=== PATIENT | male | born 1990 | race Caucasian/White ===

== ENCOUNTER 2018-07-07 17:11 | Emergency (ER) | payer OTHER ==
--- NOTE | 2018-07-07 17:34 | PDOC ---
Rapid Medical Evaluation Chief Complaint: Injury Time Seen by Provider: 07/07/18 17:30 Medical Evaluation: Allergies Allergy/AdvReac Type Severity Reaction Status Date / Time No Known Allergies Allergy Verified 07/07/18 17:30 07/07/18 17:31 This patient had a brief in-person evaluation. The patient presents with a chief complaint of laceration to right lower leg. States accidentally cut by glass that was sticking out of garbage bag. Tetanus not up to date Pertinent physical exam NAD even and unlabored breathing right lower leg with open wound The following was ordered xray, boostrix This patient will proceed to the ED Discharge Disposition - Diagnosis Laceration - Referrals - Patient Instructions - Post Discharge Activity
[2018-07-07] MEDS ORDERED: DIPHTH,PERTUSS(ACELL),TET 0.5 ML DISP.SYRIN IM ONE (17:35)
[2018-07-07 17:37] VITALS: BP 111/60; PULSE 78; TEMP 97.9; BMI 25.4
--- NOTE | 2018-07-07 19:58 | PDOC ---
History of Present Illness - History of Present Illness Initial Comments: This patient is a 27 year old male with PMHx of IDDM, who presents for right leg laceration. Patient states that he was taking out the garbage at work last night when he cut right leg on a shard of glass. Patient states that he began bleeding and passed out at the site of blood. He states that he fell down on the concrete and hit his head and his right shoulder. He states that he had a headache yesterday but none today. He also is complaining of right shoulder pain. Patient is left hand dominant. Tetanus not up to date 07/07/18 20:15 <Violet Valdivia - Last Filed: 07/07/18 20:18> - General History Source: Patient Exam Limitations: No Limitations <Kelley Scott - Last Filed: 07/10/18 17:04> - General Chief Complaint: Injury Stated Complaint: ON JOB INJURY RIGHT SIDE Time Seen by Provider: 07/07/18 17:30 Past History <Violet Valdivia - Last Filed: 07/07/18 20:18> - Travel Traveled outside of the country in the last 30 days: No Close contact w/someone who was outside of country & ill: No - Past Medical History COPD: No Diabetes: Yes (IDDM) - Immunization History Immunization Up to Date: Yes - Suicide/Smoking/Psychosocial Hx Smoking History: Current every day smoker Number of Cigarettes Smoked Daily: 8 Information on smoking cessation initiated: No Hx Alcohol Use: No Drug/Substance Use Hx: Yes (MARIJUANA) <Kelley Scott - Last Filed: 07/10/18 17:04> - Past Medical History Allergies/Adverse Reactions: Allergies Allergy/AdvReac Type Severity Reaction Status Date / Time No Known Allergies Allergy Verified 07/07/18 17:30 Home Medications: Ambulatory Orders Cephalexin Monohydrate [Keflex -] 500 mg PO BID #14 capsule 07/07/18 traMADol HCL [Ultram -] 50 mg PO Q8H #12 tablet MDD 3 07/07/18 Review of Systems - Review of Systems Comments:: GENERAL/CONSTITUTIONAL: No fever or chills. No weakness. HEAD, EYES, EARS, NOSE AND THROAT: No change in vision. No ear pain or discharge. No sore throat. CARDIOVASCULAR: No chest pain or shortness of breath. RESPIRATORY: No cough, wheezing, or hemoptysis. GASTROINTESTINAL: No nausea, vomiting, diarrhea or constipation. GENITOURINARY: No dysuria, frequency, or change in urination. MUSCULOSKELETAL: +right shoulder pain. No neck or back pain. SKIN: +anterior right leg laceration. NEUROLOGIC: No current headache, vertigo, loss of consciousness, or change in strength/sensation. ENDOCRINE: No increased thirst. No abnormal weight change. HEMATOLOGIC/LYMPHATIC: No anemia, easy bleeding, or history of blood clots. ALLERGIC/IMMUNOLOGIC: No hives or skin allergy. <Violet Valdivia - Last Filed: 07/07/18 20:18> *Physical Exam - Vital Signs Last Vital Signs Temp Pulse Resp BP Pulse Ox 97.9 F 78 17 111/60 98 07/07/18 17:30 07/07/18 17:30 07/07/18 17:30 07/07/18 17:30 07/07/18 17:30 - Physical Exam Comments: GENERAL: Awake, alert, and fully oriented, in no acute distress HEAD: No signs of visible trauma EYES: PERRLA, EOMI, sclera anicteric, conjunctiva clear NECK: Normal ROM, supple, no lymphadenopathy, JVD, or masses LUNGS: Breath sounds equal, clear to auscultation bilaterally. No wheezes, and no crackles HEART: Regular rate and rhythm, normal S1 and S2, no murmurs, rubs or gallops ABDOMEN: Soft, nontender, normoactive bowel sounds. No guarding, no rebound. No masses EXTREMITIES: + drop arm (RA), +empty can (RA), no edema. No clubbing or cyanosis. No cords or erythema. NEUROLOGICAL: Cranial nerves II through XII grossly intact. Normal speech, normal gait SKIN: 2 cm laceration to right lateral leg. Bleeding controlled. Warm, Dry, normal turgor. <Violet Valdivia - Last Filed: 07/07/18 20:18> - Vital Signs Last Vital Signs Temp Pulse Resp BP Pulse Ox 97.9 F 78 17 111/60 98 07/07/18 17:30 07/07/18 17:30 07/07/18 17:30 07/07/18 17:30 07/07/18 17:30 <Kelley Scott - Last Filed: 07/10/18 17:04> Moderate Sedation - Procedure Monitoring Vital Signs: Procedure Monitoring Vital Signs Temperature 97.9 F 07/07/18 17:30 Pulse Rate 78 07/07/18 17:30 Respiratory Rate 17 07/07/18 17:30 Blood Pressure 111/60 07/07/18 17:30 O2 Sat by Pulse Oximetry (%) 98 07/07/18 17:30 <Violet Valdivia - Last Filed: 07/07/18 20:18> - Procedure Monitoring Vital Signs: Procedure Monitoring Vital Signs Temperature 97.9 F 07/07/18 17:30 Pulse Rate 78 07/07/18 17:30 Respiratory Rate 17 07/07/18 17:30 Blood Pressure 111/60 07/07/18 17:30 O2 Sat by Pulse Oximetry (%) 98 07/07/18 17:30 <ScikaileeKelley - Last Filed: 07/10/18 17:04> ED Treatment Course - Medications Given in the ED: ED Medications Discontinued Medications Generic Name Dose Route Start Last Admin Trade Name Freq PRN Reason Stop Dose Admin Diphtheria/Tetanus/Acell Pertussis 0.5 ml 07/07/18 17:35 07/07/18 19:01 Boostrix - IM 07/07/18 17:36 0.5 ml .ONCE ONE Administration <Violet Valdivia - Last Filed: 07/07/18 20:18> - Medications Given in the ED: ED Medications Discontinued Medications Generic Name Dose Route Start Last Admin Trade Name Freq PRN Reason Stop Dose Admin Diphtheria/Tetanus/Acell Pertussis 0.5 ml 07/07/18 17:35 07/07/18 19:01 Boostrix - IM 07/07/18 17:36 0.5 ml .ONCE ONE Administration <Sciliano,Kelley - Last Filed: 07/10/18 17:04> Medical Decision Making - Medical Decision Making 07/07/18 19:52 A portion of this note was documented by scribe services under my direction. I have reviewed the details of the note, within reason, and agree with the documentation with the following case summary and management plan written by me. Pt sustained laceration at work while taking out the trash. He cut himself on a piece of glass at 12am this morning. While seeing blood, pt syncopized and fell on his R shoulder and he believes he hit his head; no vomiting or head ache at this time. No visible head injury. Pt does not remember the date of his last tetanus shot. PMH of insulin dependent diabetes. Pt is L hand dominant. A/P: Laceration to R lateral leg, R shoulder pain, LOC (+) drop arm test, empty can test on R shoulder X-ray is negative for fracture to R shoulder and R guerrero Likely rotator cuff injury; pt placed in sling Wound cleaned under high pressure. No foreign bodies noted. Laceration repaired by Dr. Saaevdra, see procedure note Keflex started as pt insulin dependent diabetic DC home with ortho follow up; referral given Strict return precautions for wound given pt is a type 1 diabetic I discussed the physical exam findings, ancillary test results and final diagnoses with the patient. I answered all of the patient's questions. The patient was satisfied with the care received and felt comfortable with the discharge plan and treatment plan. The Patient agrees to follow up with the primary care physician/specialist within 24-72 hours. Return precautions were given. <Kelley Scott - Last Filed: 07/10/18 17:04> *DC/Admit/Observation/Transfer - Attestations Scribe Attestion: 07/07/18 20:17 Documentation prepared by Violet Valdivia, acting as medical transcriptionist for FRANKIE Olea. <Violet Valdivia - Last Filed: 07/07/18 20:18> - Discharge Dispostion Decision to Admit order: No <Kelley Scott - Last Filed: 07/10/18 17:04> Diagnosis at time of Disposition: Laceration Shoulder pain Qualifiers: Chronicity: acute Laterality: right Qualified Code(s): M25.511 - Pain in right shoulder - Discharge Dispostion Disposition: HOME Condition at time of disposition: Stable - Prescriptions Prescriptions: Cephalexin Monohydrate [Keflex -] 500 mg PO BID #14 capsule traMADol HCL [Ultram -] 50 mg PO Q8H #12 tablet MDD 3 - Referrals Referrals: Monty Bro MD [Staff Physician] - - Patient Instructions Printed Discharge Instructions: DI for Rotator Cuff Injury, DI for Laceration Repair -- Simple Additional Instructions: You had your cut fixed today with stitches. Please return in 10-14 days to have your stitches removed. Your tetanus shot was updated today. Avoid soaking the leg. Keep it dry when showering. Take the keflex as prescribed (antibiotic). Finish the entire dose even if you feel better. Please keep the area clean and pat dry. You were also evaluated for your shoulder pain Take Motrin 600mg every 6 hours not to exceed 3,000mg a day You may take a tramadol every 8 hours as needed for breakthrough pain. Do not drive or drink alcohol after taking this medication as it may make you sleepy Wear the sling while awake Follow up with orthopedics this week Return to the emergency department sooner if you have worsening shoulder pain, area of redness around the site, purulent drainage, fevers, or have any changes in your symptoms. - Post Discharge Activity Forms/Work/School Notes: Back to Work
== END 2018-07-07 21:00 | disposition home or self-care (01) ==
LOC: JERFT 17:11
PROC: 3E0234Z Introduction of Serum, Toxoid and Vaccine into Muscle, Percutaneous Approach (ICD-10-PCS; principal; 2018-07-07)
PROC: 0JQN0ZZ Repair Right Lower Leg Subcutaneous Tissue and Fascia, Open Approach (ICD-10-PCS; 2018-07-07)
DX: S81.811A Laceration without foreign body, right lower leg, initial encounter (principal); M25.511 Pain in right shoulder; W25.XXXA Contact with sharp glass, initial encounter; Y93.H9 Activity, other involving exterior property and land maintenance, building and construction; Y92.511 Restaurant or cafe as the place of occurrence of the external cause; Y99.0 Civilian activity done for income or pay; W18.39XA Other fall on same level, initial encounter; E10.9 Type 1 diabetes mellitus without complications; Z79.4 Long term (current) use of insulin
CPT/HCPCS: 73030-TC-RT-FY; 73590-TC-RT-FY; 90715; 99281-25